=== PATIENT | male | born 1935 | race Caucasian/White ===

== ENCOUNTER → 2016-05-07 | Outpatient (CLI) | payer MEDICARE, OTHER ==
[~2016-05-07] MED LIST: ALBU6.7H INH; AMBI10TA PO; ASPI81 PO; ATEN1TAB74 PO; PRED-1 PO; PRIN5TAB PO; ROSU10 PO; ZITH250T PO; remicade IM
[2016-05-07 08:21] LABS: HEMATOCRIT 47.9 % (39.0-51.0); MEAN CELL VOLUME 88.4 FL (80.0-100.0); PLATELET COUNT 170 TH/MM3 (150-450); RED BLOOD COUNT 5.42 MIL/MM3 (4.50-5.90); RED CELL DISTRIBUTION WIDTH 14.2 % (11.6-17.2); REVIEW FLAG FINAL; WHITE BLOOD COUNT 8.5 TH/MM3 (4.0-11.0)
[2016-05-07 09:15] LABS: ALKALINE PHOSPHATASE 50 U/L (45-117); ALT (GPT) 22 U/L (12-78); ANION GAP 6 MEQ/L (5-15); AST (GOT) 18 U/L (15-37); BICARBONATE 30.1 MEQ/L (21.0-32.0); BLOOD UREA NITROGEN 22 MG/DL (7-18); CHLORIDE 105 MEQ/L (98-107); GLOMERULAR FILTRATION RATE 43 ML/MIN (>89); GLUCOSE,FASTING 82 MG/DL (74-99); LDL CHOLESTEROL 90 MG/DL (0-99); POTASSIUM 4.3 MEQ/L (3.5-5.1); SODIUM (NA) 141 MEQ/L (136-145); TOTAL BILIRUBIN ADULT 0.7 MG/DL (0.2-1.0)
== END ==
LOC: CLAB 07:56
PROVIDERS: ATTEND Internal Medicine Interventional Cardiology
DX: E78.2 Mixed hyperlipidemia (principal); I25.10 Atherosclerotic heart disease of native coronary artery without angina pectoris
CPT/HCPCS: 36415; 80053; 80061; 85027

== ENCOUNTER 2017-02-13 16:37 | Emergency (ER) | payer MEDICARE, OTHER ==
[~2017-02-13] VITALS: Ht 175.3 cm; Wt 84.0 kg
[2017-02-13 16:41] VITALS: BP 163/67; PULSE 61; RESP 16; TEMP 98.2; O2SAT 98
--- NOTE | 2017-02-13 17:01 | PD ---
HPI Chief Complaint: Foreign Body Time Seen by Provider: 16:57 Travel History International Travel<30 days: No Contact w/Intl Traveler<30days: No Traveled to known affect area: No History of Present Illness HPI the patient is a 81 year-old male who presents to the emergency department for foreign-body to the left ear canal. The patient states he was traveling from [place] last night when he stopped at a hotel, it was noisy outside from trucks, therefore, he stuck some tissue paper in both ear canals. He was able to remove the tissue from the right ear canal, however, states the tissue from the left ear canal got stuck. He notes decreased hearing secondary to the tissue paper within the left EAC. He denies any drainage from the affected area. He denies any tinnitus, vertigo, nausea, or vomiting. Symptoms are mild, secondary to foreign body in the left EAC, and there are no current alleviating factors. PFSH Past Medical History Arthritis: Yes Blood Disorders: No Heart Rhythm Problems: No Cancer: No Cardiovascular Problems: Yes High Cholesterol: Yes Chemotherapy: No Chest Pain: No Congestive Heart Failure: No Diabetes: Yes (BORDER LINE) Endocrine: Yes Gastrointestinal Disorders: Yes GERD: No Genitourinary: No Hepatitis: No Hiatal Hernia: Yes Hypertension: Yes Immune Disorder: No Musculoskeletal: Yes Neurologic: No Psychiatric: No Respiratory: No Myocardial Infarction: Yes Radiation Therapy: No Thyroid Disease: No Ulcer: No Past Surgical History Abdominal Surgery: Yes (HERNIA REPAIR 02/17) AICD: No Cardiac Surgery: Yes (STENT PLACED) Ear Surgery: No Endocrine Surgery: No Eye Surgery: No Genitourinary Surgery: No Gynecologic Surgery: No Joint Replacement: No Oral Surgery: No Pacemaker: No Thoracic Surgery: No Other Surgery: Yes Social History Alcohol Use: No Tobacco Use: No Substance Use: No Allergies-Medications (Allergen,Severity, Reaction): Coded Allergies: levofloxacin (Unverified Allergy, Severe, 02/13/17) ezetimibe (Verified Allergy, Unknown, 02/13/17) simvastatin (Verified Allergy, Unknown, 02/13/17) Reported Meds & Prescriptions Reported Meds & Active Scripts Active Zithromax Z-Carlos (Azithromycin) 250 Mg Tab 250 Mg PO DIRECTED 5 Days 500 MG (2 TABLETS) PO ON DAY 1, THEN 250 MG (1 TABLET) PO ON DAYS 2 TO 5. Proventil Hfa (Albuterol Sulfate) 6.7 Gm Aero 1-2 Puff INH Q6 PRN Reported Prednisolone 5 Mg Tab 5 Mg PO Ambien (Zolpidem Tartrate) 10 Mg Tab 10 Mg PO HSPRN INSOMNIA Crestor (Rosuvastatin Calcium) 10 Mg Tab 10 Mg PO DAILY Aspirin 81 Mg Tab 81 Mg PO DAILY Prinivil (Lisinopril) 5 Mg Tab 5 Mg PO DAILY [remicade] IM 8WEEKS Tenormin (Atenolol) 50 Mg Tab 50 Mg PO DAILY Review of Systems HENT: Positive: Other (as noted any history of present illness) Gastrointestinal: No: Nausea, Vomiting Skin: No Rash, No Itching Neurologic: No: Dizziness Physical Exam Narrative GENERAL: Awake, alert, pleasant 81-year-old male who appears his stated age and is in no acute respiratory distress. SKIN: Focused skin assessment warm/dry. HEAD: Atraumatic. Normocephalic. EYES: Pupils equal and round. No scleral icterus. No injection or drainage. ENT: No nasal bleeding or discharge. Mucous membranes pink and moist. Right tympanic membrane is translucent and the right EAC is clear. The left tympanic membrane cannot be visualized secondary to tissue paper. NECK: Trachea midline. No JVD. MUSCULOSKELETAL: No obvious deformities. No clubbing. No cyanosis. No edema. NEUROLOGICAL: Awake and alert. No obvious cranial nerve deficits. Motor grossly within normal limits. Normal speech. Nonfocal. PSYCHIATRIC: Appropriate mood and affect; insight and judgment normal. Data Data Last Documented VS Vital Signs Date Time Temp Pulse Resp B/P (MAP) Pulse Ox O2 Delivery O2 Flow Rate FiO2 02/13/17 16:41 98.2 61 16 163/67 (99) 98 MDM Medical Decision Making Medical Screen Exam Complete: Yes Emergency Medical Condition: Yes Medical Record Reviewed: Yes Differential Diagnosis Differential diagnosis includes retained foreign body, otitis media, serous otitis, otitis externa, ruptured tympanic membrane. Narrative Course The patient's foreign body in the left EAC was removed using alligator forceps. The ear was reinspected, there is no residual foreign bodies. The patient's hearing improved. He will be discharged home. Procedures Procedure Narrative I removed the tissue paper for the patient's left EAC with alligator forceps. The patient tolerated the procedure without difficulty and there was no obvious complications. Diagnosis Primary Impression: Foreign body in left ear, initial encounter Patient Instructions: General Instructions Additional Instructions: did not place any foreign bodies in the ears. Follow-up with her primary physician. Return if symptoms worsen or progress. Med/Other Pt SpecificInfo: No Change to Meds Disposition: 01 DISCHARGE HOME Condition: Stable Nils Blum MD Feb 13, 2017 17:01
== END 2017-02-13 17:24 | disposition home or self-care (01) ==
LOC: PHEFT 16:37
DX: T16.2XXA Foreign body in left ear, initial encounter (principal); I10 Essential (primary) hypertension
CPT/HCPCS: 69200

== ENCOUNTER → 2017-05-21 | Outpatient (CLI) | payer MEDICARE, OTHER | LOC: CLAB 09:34 | PROVIDERS: ATTEND Internal Medicine Interventional Cardiology | DX: I11.9 Hypertensive heart disease without heart failure (principal); E78.2 Mixed hyperlipidemia; I73.9 Peripheral vascular disease, unspecified; I25.10 Atherosclerotic heart disease of native coronary artery without angina pectoris | CPT/HCPCS: 36415; 82550; 85652 ==